=== PATIENT | male | born 1985 | race Caucasian/White ===

== ENCOUNTER 2018-01-24 06:18 | Day surgery (SDC) | payer BC ==
--- NOTE | 2018-01-22 17:39 | HP ---
CC: Dr. Schwarz, [place], [place] * HISTORY AND PHYSICAL: DATE OF PLANNED ADMISSION AND SURGERY: 01/24/18 HISTORY OF PRESENT ILLNESS: Mr. 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 The patient had noted right scrotal swelling and slight right testicular pain about 6 weeks ago. There was associated mild scrotal heaviness and pain. There is no past history of any inguinal or scrotal trauma or surgery. No past history of testicular maldescent in childhood. The patient was initially evaluated by Dr. Schwarz in [place]. A scrotal ultrasound was done at [place], and the study showed a large mass in the right testis with increased vascularity consistent with malignancy. He referred him to [facility] at [place] where he was seen by Dr. Juarez. The patient had testicular markers drawn. His AFP was normal at 1.3, beta-hCG was at the upper limit of normal at 3, and the LDH was elevated at 447 (upper limit of normal of 250). Dr. Juarez recommended obtaining metastatic workup with the CT of the chest , abdomen, and pelvis. The study was pending approval of his insurance. The patient came with his to my office seeking continued care here. PAST MEDICAL HISTORY: Relevant for hyperlipidemia for which he is on atorvastatin 20 mg daily. He has a history of anxiety and he is on lorazepam 1 mg as needed and on sertraline 25 mg daily. ALLERGIES: He denies any allergies to medications. SOCIAL/PERSONAL HISTORY: He is a smoker. He works in construction. He is engaged and his fiancee was with him at his visit. He has not had any children. REVIEW OF SYSTEMS: No other history. The patient has been very anxious and stressed considering the above condition. PHYSICAL EXAMINATION GENERAL: Slim, white male, who is rather anxious and looks his age. VITAL SIGNS: Blood pressure 120/70, pulse of 86, temperature 97, oxygen saturation 99% on room air. LUNGS: Clear. Chest wall is normal and there is no gynecomastia. HEART: Regular and rhythmic. No murmurs. ABDOMEN: Soft. EXTREMITIES: Show no edema. EXTERNAL GENITALIA: He is circumcised. There is diffuse enlargement and induration of the whole right testis. No hydrocele. The scrotal skin is free and not adherent to the testis. No right inguinal hernia. The left testis feels normal in size and consistency without any suspicious masses. No inguinal hernias. LABORATORY DATA: Urinalysis is negative. IMPRESSION: Right testicular tumor with normal hCG and AFP, and an elevated LDH. PLAN: 1. CT of the chest, abdomen, and pelvis. 2. Right radical orchiectomy. I discussed the above plans in detail with the patient and his fiancee. They both understand that postoperatively, he will need referral to Oncology and decision will be made whether additional treatments are going to be needed based on the result of the CT scan and on the pathology. All their questions were answered. P.S. CT of the Chest Abdomen and Pelvis with IV contrast was obtained 1 day pre -op. The study was normal showing no lymphadenopathy and no abnormal masses, no mets. [id number] #: [id number] MTDD
[~2018-01-24 06:18] MED LIST: Buffered Lidocaine 0.9% SYRIN* 5 ML/SYR SYRINGE INTRADERM ONE
[2018-01-24] MEDS ORDERED: cefTRIAXone(*) 1 GM ADVAN/BAG ONE (06:37)
[2018-01-24] MEDS ORDERED: Bupivacaine 0.5% SDV PF* 30ML VIAL ONE (06:59)
[2018-01-24] MEDS ORDERED: fentaNYL* 50 MCG/ML 2 ML VIAL (100 MCG VIAL) ONE ×2 (07:23→09:25)
[2018-01-24] MEDS ORDERED: Midazolam* 1 MG/ML 5 ML VIAL (5 MG) ONE (07:23)
[2018-01-24] MEDS ORDERED: Propofol* 10 MG/ML 20 ML BTL IV PUSH ONE ×2 (07:23→08:25)
[2018-01-24] MEDS ORDERED: Dexamethasone IV* 4 MG/ML 1 ML (4 MG) ONE (07:23)
[2018-01-24] MEDS ORDERED: fentaNYL* 50 MCG/ML 2 ML VIAL (100 MCG VIAL) IV PRN (08:15)
[2018-01-24] MEDS ORDERED: Naloxone* 0.4 MG/ML 1 ML VIAL IV PRN (08:15)
[2018-01-24] MEDS ORDERED: oxyCODONE/Acetamin 5/325 MG* TAB PO PRN (08:15)
[2018-01-24] MEDS ORDERED: DiMENhydriNATE IV* 50 MG/ML VIAL IV PUSH PRN (08:15)
[2018-01-24] MEDS ORDERED: Ondansetron INJ* 2 MG/ML VIAL IV PRN (08:15)
[2018-01-24] MEDS ORDERED: HYDROcodone/ACETAMIN 5-325 MG* 1 TAB PO PRN (08:15)
[2018-01-24] MEDS ORDERED: Ondansetron INJ* 2 MG/ML VIAL ONE (08:20)
[2018-01-24] MEDS ORDERED: Ketorolac INJ* 30 MG/ML 1 ML VIAL ONE (08:20)
[2018-01-24] MEDS ORDERED: oxyCODONE/Acetamin 5/325 MG* TAB ONE (09:22)
[2018-01-24 10:12] VITALS: BP 130/79
[2018-01-24] MEDS ORDERED: Morphine VIAL* 10 MG/ML 1 ML VIAL ONE (10:25)
--- NOTE | 2018-01-25 00:30 | OP ---
CC: Dr. Schwarz in [place], [place].* DATE OF OPERATION: 01/24/18 - [facility] DATE OF : 87 SURGEON: Messi Lemus MD [employer]IN [employer] MACHINE OPERATOR AUTOMATIC: Dr. Cheng. ANESTHESIOLOGIST: Dr. Ciro Noel. ANESTHESIA: General. PRE-OP DIAGNOSIS: Right testicular tumor. POST-OP DIAGNOSIS: Right testicular tumor, pending pathology. OPERATIVE PROCEDURE: Right radical orchiectomy. INDICATIONS FOR PROCEDURE: Magdi is a 33-year-old white male who noted an enlarged firm mass in the right testes about 6 weeks ago. The patient was worrked up in [place], [place], and had a scrotal ultrasound which showed a large heterogenous vascular mass occupying the right testes. Testicular markers AFP and hCG were normal. LDH was elevated. Patient presented to my office for consultation 2 days ago. Exam showed a large firm mass occupying most of the Rt testis. CT of the chest, abdomen, and pelvis was done yesterday. The study was normal showing no abnormal lymphadenopathy or abnormal masses. PATHOLOGY: exam under anesthesia confirmed a firm large mass occupying most of the right testes. There was no adhesion of the tunica vaginalis to the scrotal wall. Exploration of the Rt inguinal area was normal. No inguinal hernia was noted. DESCRIPTION OF PROCEDURE: After successful general anesthesia the patient was placed in the supine position and was prepped and draped for a right inguinal incision. A total of 8 cc of 0.5% Marcaine without epinephrine were then given subcutaneously before starting the incision. Right inguinal incision was then performed and deepened through the Gabe's fascia. The external oblique aponeurosis and external ring were exposed. The external ring was then opened along the lines of its fibers and the external ring was opened. The spermatic cord was identified at the level of the pubic tubercle, was circumferentially dissected and dissected proximally all the way to the level of the internal ring. The ilioinguinal nerve was not within the field of dissection. It was not adherent to the spermatic cord. At the level of the internal ring the spermatic cord was divided between 2 Elham clamps. The stump of the spermatic cord was then double ligated with 0- Silk sutures. The spermatic cord was then dissected distally all the way to the level of the scrotum. The testis was delivered through the incision. The attachment of the tunica vaginalis to the scrotal wall were then divided with cautery and the vessels were ligated with 4-0 Vicryl. The specimen was delivered without opening the tunica vaginalis and sent fresh to pathology. After making sure there was very good hemostasis the external oblique aponeurosis was closed using interrupted sutures of 2-0 Vicryl. An additional 10 cc of 0.5% Marcaine without epinephrine were then given subcutaneously for post-operative analgesia. The incision was then closed using 4-0 Vicryl for the Gabe's fascia and the subcutaneous tissue and the skin were closed using running subcuticular suture of 4-0 Monocryl. Steri-strips were applied. The patient tolerated the procedure well and left the operating room in good condition. There was no blood loss. The specimen was right testis and spermatic cord. All the counts were correct. [id number] #: [id number] MTDD
== END 2018-01-24 10:22 | disposition home or self-care (01) ==
LOC: OR 06:18
PROVIDERS: ATTEND Urology
DX: C62.91 Malignant neoplasm of right testis, unspecified whether descended or undescended (principal); Z72.0 Tobacco use; F41.9 Anxiety disorder, unspecified; E78.00 Pure hypercholesterolemia, unspecified
CPT/HCPCS: 88309; 88341; 88342; A9270-GY; J0696; J1100; J1885; J2250; J2270; J2405; J2704; J3010